=== PATIENT | female | born 1945 | race Caucasian/White ===

== ENCOUNTER 2018-01-18 14:13 | Inpatient (IN) | payer MEDICARE, OTHER ==
--- NOTE | 2018-01-18 16:28 | History and Physical Report ---
History of Present Illnes - History of Present Illness Reason for Visit: Weakness History of Present Illness: Patient has a long standing h/o of spinal issues and chronic pain. She underwent decompression and refusion of L2-S1 by Dr. Romero at [facility] [place] for severe spinal stenosis. This was her 6th L spine surgery. She has done well postop. Had quite a bit of pre-op weakness. She will be admitted for SNF to help with her ambulation and strength. 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: Dementia, Other (Parkinsons) Gastrointestinal: GERD Psych: Anxiety, Depression, Other (Insomnia) Musculoskeletal: Chronic low back pain, Osteoarthritis Rheumatologic: Fibromyalgia Renal/: Other (OAB/incontinence) Endocrine: Osteoporosis - Past Surgical History Past Surgical History: Cataract Removal, Hysterectomy (1983 due to cervical cancer), Other (L spine surgery x 6; C spine surgery x 3) - Past Family History Mother Family History: DM, (86), Other (Parkinsons) Father Family History: CAD, (80) - Past Social History Smoke: Quit (Smokes and "eats" marijuana occasionally) 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 2 kids) - Health Maintenance Health Maintenance: Cholesterol, Influenza Vaccine, Pneumococcal Vaccine Influenza Vaccine: Current for this Influenza Season Pneumonia Vaccine: Yes Resuscitation Status: Resusciation Status Resuscitation Status Full Code Review of Systems - Review of Systems Constitutional: Weakness. negative: Fever Eyes: negative: pain ENT: negative: Nose Congestion Respiratory: negative: Cough, Shortness of Breath Cardiovascular: negative: Chest Pain Gastrointestinal: Constipation. negative: Nausea, Vomiting, Abdominal Pain Genitourinary: negative: Dysuria Musculoskeletal: Back Pain Skin: negative: Rash Neurological: Weakness - Medications/Allergies Allergies/Adverse Reactions: Allergies Allergy/AdvReac Type Severity Reaction Status Date / Time Sulfa (Sulfonamide Allergy Mild Verified 10/23/16 10:35 Antibiotics) Current Inpatient Medications: Current Inpatient Medications Aripiprazole (Abilify) 5 mg PO DAILY MARIN Aspirin (Ecotrin) 81 mg PO DAILY MARIN Baclofen (Lioresal) 10 mg PO TID MARIN Bisacodyl (Dulcolax) 10 mg PO DAILY PRN PRN Reason: Constipation Carbidopa/Levodopa (Sinemet) each PO TID MARIN Diazepam (Valium) 5 mg PO Q12 PRN PRN Reason: Anxiety Enoxaparin Sodium (Lovenox) 40 mg SQ QD [facility] Stop: 02/01/18 16:59 Fluoxetine HCl (Prozac) 20 mg PO DAILY [facility] Gabapentin (Neurontin) 400 mg PO TID [facility] Lisinopril (Prinivil) 10 mg PO DAILY [facility] Memantine (Namenda) 10 mg PO HS [facility] Miscellaneous (Entacapone [Entacapone]) 200 mg PO TID [facility] Miscellaneous (Estradiol [Estradiol]) 1 mg PO DAILY [facility] Polyethylene Glycol (Miralax) 17 gm PO 1100 [facility] Sennosides (Senokot) 8.6 mg PO BID [facility] Exam - Exam General: Alert, Oriented to Person, Oriented to Place, Oriented to Time, Cooperative, Thin HEENT: Atraumatic, PERRLA, EOMI, Mouth Mucous membr. moist/Big Arm, Nose Mucous membr. moist/Big Arm Neck: Normal Range of Motion Lungs: Clear to auscultation, Normal air movement, Speaks full Sentences Cardiovascular: Regular rate Abdomen: Normal bowel sounds, Soft, No tenderness Integumentary: Normal, Other (Midline incision C/D/I) Extremities: No edema Neurological: Generalized Weakness Psych/Mental Status: Mental status NL, Mood NL, Appropriate Affect, Intact Judgment Assessment/Plan - Assessment/Plan (1) Weakness Status: Acute Current Visit: Yes Plan: Will admit patient for PT/OT. Gentle walking per Dr. Romero to allow healing. Corset when up and active. (2) Chronic pain Status: Acute Current Visit: Yes Plan: Patient is back on her pre-op norco 10. Work on bowels. Lovenox for DVT prevention. (3) S/P lumbar spinal fusion Status: Acute Current Visit: Yes (4) HTN (hypertension) Status: Chronic Current Visit: No Qualifiers: Hypertension type: essential hypertension Qualified Code(s): I10 - Essential (primary) hypertension (5) Parkinson disease Status: Chronic Current Visit: No (6) Fibromyalgia Status: Chronic Current Visit: No VTE Assessment - RISK FACTOR SCORE VTE RISK FACTOR SCORES: AGE OVER 60 YEARS, ANTICIPATED BED CONFINEMENT OR IMMOBILIZATION > 24 HOURS - RISK VTE MODERATE RISK: SCORE OF 2 (RISK PROXIMAL DVT 2-4%) PROPHYAXIS NEEDED
[2018-01-18] MEDS ORDERED: GABAPENTIN 100 MG CAPSULE ONE (16:53)
[2018-01-18] MEDS: HYDROcodone /APAP 10/325 1 EACH TABLET PO PRN ×2 (17:16→21:02)
[2018-01-18] MEDS: GABAPENTIN 300 MG CAPSULE PO SCH (17:17)
[2018-01-18] MEDS: BACLOFEN 10 MG TABLET PO SCH (17:17)
[2018-01-18] MEDS: MEMANTINE HCL 10 MG TABLET PO SCH ×2 (17:17→20:31)
[2018-01-18] MEDS: ENOXAPARIN SODIUM 40 MG/0.4 ML DISP.SYRIN SQ SCH (17:18)
[2018-01-18] MEDS: ENTACAPONE 200 MG PO SCH (17:18)
[2018-01-18] MEDS: POLYETHYLENE GLYCOL 3350 17 GM POWD.PACK PO SCH (17:18)
[2018-01-18 18:55] VITALS: BMI 21.4
[2018-01-18] MEDS: SENNOSIDES 8.6 MG TABLET PO SCH (20:30)
[2018-01-18] MEDS: DIAZEPAM 5 MG TABLET PO PRN (20:34)
[2018-01-19] MEDS ORDERED: GABAPENTIN 100 MG CAPSULE ONE ×2 (01:31→13:11)
[2018-01-19] MEDS: HYDROcodone /APAP 10/325 1 EACH TABLET PO PRN ×5 (01:33→17:27)
[2018-01-19] MEDS: SENNOSIDES 8.6 MG TABLET PO SCH ×2 (08:36→19:41)
[2018-01-19] MEDS: BACLOFEN 10 MG TABLET PO SCH ×3 (08:37→17:27)
[2018-01-19] MEDS: LISINOPRIL 20 MG TABLET PO SCH (08:37)
[2018-01-19] MEDS: ASPIRIN EC 81 MG TABLET.DR PO SCH (08:37)
[2018-01-19] MEDS: GABAPENTIN 300 MG CAPSULE PO SCH ×3 (08:38→17:28)
[2018-01-19] MEDS: ENTACAPONE 200 MG PO SCH ×3 (08:38→17:27)
[2018-01-19] MEDS: ARIPIPRAZOLE 2 MG TABLET PO SCH (08:45)
[2018-01-19] MEDS: FLUoxetine HCL 10 MG CAPSULE PO SCH (08:45)
[2018-01-19] MEDS ORDERED: ARIPIPRAZOLE 5 MG PO SCH (09:00)
[2018-01-19] MEDS ORDERED: ESTRADIOL 1 MG PO SCH (09:00)
[2018-01-19] MEDS ORDERED: FLUOXETINE HCL 20 MG PO SCH (09:00)
--- NOTE | 2018-01-19 11:06 | Inpatient Progress Note ---
Subjective - Required Recertification Statement I anticipate X number of days because-include discharge plan: 10 - Review of Systems Subjective: Patient tells me her [place]'s 10 aren't controlling the pain. This is what she took for pain at home. Objective - Exam Vitals and I&O: Vital Signs Temp 98.3 F 01/19/18 09:00 Pulse 85 01/19/18 09:00 Resp 18 01/19/18 09:00 BP 155/66 01/19/18 09:00 Pulse Ox 93 01/19/18 09:00 Intake & Output 01/18/18 01/18/18 01/19/18 11:59 23:59 11:59 Intake Total 240 600 Balance 240 600 Weight 41.73 kg Intake: Oral 240 600 Other: Voiding Method Toilet Toilet # Voids 1 3 General: Alert, Oriented to Person, Oriented to Place, Oriented to Time, Cooperative Assessment/Plan - Assessment/Plan (1) Weakness Status: Acute Current Visit: Yes (2) Chronic pain Status: Acute Current Visit: Yes Plan: I am going to add ibuprofen 600 mg bid to help with inflammation. (3) S/P lumbar spinal fusion Status: Acute Current Visit: Yes (4) HTN (hypertension) Status: Chronic Current Visit: No Qualifiers: Hypertension type: essential hypertension Qualified Code(s): I10 - Essential (primary) hypertension (5) Parkinson disease Status: Chronic Current Visit: No (6) Fibromyalgia Status: Chronic Current Visit: No
[2018-01-19] MEDS: POLYETHYLENE GLYCOL 3350 17 GM POWD.PACK PO SCH (11:32)
[2018-01-19] MEDS: ENOXAPARIN SODIUM 40 MG/0.4 ML DISP.SYRIN SQ SCH (17:29)
[2018-01-19] MEDS: DIAZEPAM 5 MG TABLET PO PRN (18:06)
[2018-01-19] MEDS: IBUPROFEN 200 MG TABLET PO SCH (19:41)
[2018-01-19] MEDS: MEMANTINE HCL 10 MG TABLET PO SCH (19:41)
[2018-01-20] MEDS: HYDROcodone /APAP 10/325 1 EACH TABLET PO PRN ×5 (01:39→22:30)
[2018-01-20] MEDS: ARIPIPRAZOLE 2 MG TABLET PO SCH (09:46)
[2018-01-20] MEDS: IBUPROFEN 200 MG TABLET PO SCH ×2 (09:47→20:26)
[2018-01-20] MEDS: ENTACAPONE 200 MG PO SCH ×3 (09:48→17:49)
[2018-01-20] MEDS: ASPIRIN EC 81 MG TABLET.DR PO SCH (09:48)
[2018-01-20] MEDS: ESTRADIOL 1 MG PO SCH (09:48)
[2018-01-20] MEDS: BACLOFEN 10 MG TABLET PO SCH ×3 (09:49→17:49)
[2018-01-20] MEDS: SENNOSIDES 8.6 MG TABLET PO SCH ×2 (09:50→20:26)
[2018-01-20] MEDS ORDERED: GABAPENTIN 100 MG CAPSULE ONE (09:55)
[2018-01-20] MEDS: MAGNESIUM HYDROXIDE 400 MG/5 ML 30ML UDC PO ONE (09:56)
[2018-01-20] MEDS: LISINOPRIL 20 MG TABLET PO SCH (09:57)
[2018-01-20] MEDS: GABAPENTIN 300 MG CAPSULE PO SCH ×3 (09:57→17:49)
[2018-01-20] MEDS: FLUoxetine HCL 10 MG CAPSULE PO SCH (09:58)
[2018-01-20] MEDS: POLYETHYLENE GLYCOL 3350 17 GM POWD.PACK PO SCH (11:54)
[2018-01-20] MEDS ORDERED: GABAPENTIN 300 MG CAPSULE PO SCH (13:00)
[2018-01-20] MEDS ORDERED: GABAPENTIN 100 MG CAPSULE PO SCH (13:00)
[2018-01-20] MEDS: GABAPENTIN 100 MG CAPSULE PO SCH ×2 (14:06→17:49)
[2018-01-20] MEDS: ENOXAPARIN SODIUM 40 MG/0.4 ML DISP.SYRIN SQ SCH (17:48)
[2018-01-20] MEDS: DIAZEPAM 5 MG TABLET PO PRN (20:25)
[2018-01-20] MEDS: MEMANTINE HCL 10 MG TABLET PO SCH (20:26)
[2018-01-21] MEDS: HYDROcodone /APAP 10/325 1 EACH TABLET PO PRN ×4 (04:26→20:41)
[2018-01-21] MEDS: FLUoxetine HCL 10 MG CAPSULE PO SCH (09:06)
[2018-01-21] MEDS: ARIPIPRAZOLE 2 MG TABLET PO SCH (09:06)
[2018-01-21] MEDS: LISINOPRIL 20 MG TABLET PO SCH (09:07)
[2018-01-21] MEDS: BACLOFEN 10 MG TABLET PO SCH ×3 (09:08→18:09)
[2018-01-21] MEDS: IBUPROFEN 200 MG TABLET PO SCH ×2 (09:09→20:33)
[2018-01-21] MEDS: ESTRADIOL 1 MG PO SCH (09:09)
[2018-01-21] MEDS: ASPIRIN EC 81 MG TABLET.DR PO SCH (09:09)
[2018-01-21] MEDS: GABAPENTIN 300 MG CAPSULE PO SCH ×3 (09:09→18:09)
[2018-01-21] MEDS: GABAPENTIN 100 MG CAPSULE PO SCH ×3 (09:09→18:09)
[2018-01-21] MEDS: SENNOSIDES 8.6 MG TABLET PO SCH ×2 (09:09→20:37)
[2018-01-21] MEDS: ENTACAPONE 200 MG PO SCH ×3 (09:09→18:10)
[2018-01-21] MEDS: POLYETHYLENE GLYCOL 3350 17 GM POWD.PACK PO SCH (11:20)
[2018-01-21] MEDS: ENOXAPARIN SODIUM 40 MG/0.4 ML DISP.SYRIN SQ SCH (16:25)
[2018-01-21] MEDS: MEMANTINE HCL 10 MG TABLET PO SCH (20:37)
[2018-01-22] MEDS: HYDROcodone /APAP 10/325 1 EACH TABLET PO PRN ×3 (04:59→19:53)
[2018-01-22] MEDS: IBUPROFEN 200 MG TABLET PO SCH ×2 (09:32→19:54)
[2018-01-22] MEDS: ENTACAPONE 200 MG PO SCH ×3 (09:33→17:32)
[2018-01-22] MEDS: ESTRADIOL 1 MG PO SCH (09:33)
[2018-01-22] MEDS: ASPIRIN EC 81 MG TABLET.DR PO SCH (09:33)
[2018-01-22] MEDS: BACLOFEN 10 MG TABLET PO SCH ×3 (09:34→17:31)
[2018-01-22] MEDS: GABAPENTIN 300 MG CAPSULE PO SCH ×3 (09:34→17:31)
[2018-01-22] MEDS: GABAPENTIN 100 MG CAPSULE PO SCH ×3 (09:34→17:31)
[2018-01-22] MEDS: LISINOPRIL 20 MG TABLET PO SCH (09:35)
[2018-01-22] MEDS: ARIPIPRAZOLE 2 MG TABLET PO SCH (09:40)
[2018-01-22] MEDS: FLUoxetine HCL 10 MG CAPSULE PO SCH (09:41)
[2018-01-22] MEDS: SENNOSIDES 8.6 MG TABLET PO SCH ×2 (09:41→19:56)
[2018-01-22] MEDS ORDERED: MAGNESIUM HYDROXIDE 400 MG/5 ML 30ML UDC PO ONE (10:18)
--- NOTE | 2018-01-22 10:21 | Inpatient Progress Note ---
Subjective - Required Recertification Statement I anticipate X number of days because-include discharge plan: 10 - Review of Systems Subjective: Patient doing ok. Small BM yesterday. Objective - Exam Vitals and I&O: Vital Signs Temp 96.2 F L 01/21/18 20:59 Pulse 72 01/21/18 21:00 Resp 18 01/21/18 21:00 BP 82/37 01/21/18 20:59 Pulse Ox 94 01/21/18 20:59 Intake & Output 01/21/18 01/21/18 01/22/18 11:59 23:59 11:59 Intake Total 220 1110 120 Balance 220 1110 120 Intake: Oral 220 1110 120 Other: Voiding Method Toilet Toilet # Voids 2 3 3 General: Alert, Oriented to Person, Oriented to Place, Oriented to Time, Cooperative, No acute distress Lungs: Clear to auscultation, Normal air movement, Speaks full Sentences Cardiovascular: Regular rate Assessment/Plan - Assessment/Plan (1) Weakness Status: Acute Current Visit: Yes (2) Chronic pain Status: Acute Current Visit: Yes (3) S/P lumbar spinal fusion Status: Acute Current Visit: Yes (4) HTN (hypertension) Status: Chronic Current Visit: No Qualifiers: Hypertension type: essential hypertension Qualified Code(s): I10 - Essential (primary) hypertension (5) Parkinson disease Status: Chronic Current Visit: No (6) Fibromyalgia Status: Chronic Current Visit: No (7) Constipation by delayed colonic transit Status: Acute Current Visit: Yes (8) Constipation Status: Acute Current Visit: Yes Qualifiers: Constipation type: unspecified constipation type Qualified Code(s): K59.00 - Constipation, unspecified Plan: Give MOM again today. Double miralax. Encourage ambulation.
[2018-01-22] MEDS: MAGNESIUM HYDROXIDE 400 MG/5 ML 30ML UDC PO ONE (10:51)
[2018-01-22] MEDS: POLYETHYLENE GLYCOL 3350 17 GM POWD.PACK PO SCH ×2 (10:58→19:55)
[2018-01-22] MEDS: ENOXAPARIN SODIUM 40 MG/0.4 ML DISP.SYRIN SQ SCH (17:31)
[2018-01-22] MEDS: MEMANTINE HCL 10 MG TABLET PO SCH (19:53)
[2018-01-22] MEDS: DIAZEPAM 5 MG TABLET PO PRN (19:53)
[2018-01-23] MEDS: HYDROcodone /APAP 10/325 1 EACH TABLET PO PRN ×4 (02:31→20:21)
[2018-01-23] MEDS: ENTACAPONE 200 MG PO SCH ×3 (08:09→17:29)
[2018-01-23] MEDS: BACLOFEN 10 MG TABLET PO SCH ×3 (08:10→17:29)
[2018-01-23] MEDS: LISINOPRIL 20 MG TABLET PO SCH (08:11)
[2018-01-23] MEDS: SENNOSIDES 8.6 MG TABLET PO SCH ×2 (08:11→20:19)
[2018-01-23] MEDS: ARIPIPRAZOLE 2 MG TABLET PO SCH (08:11)
[2018-01-23] MEDS: ASPIRIN EC 81 MG TABLET.DR PO SCH (08:11)
[2018-01-23] MEDS: IBUPROFEN 200 MG TABLET PO SCH ×2 (08:12→20:18)
[2018-01-23] MEDS: ESTRADIOL 1 MG PO SCH (08:13)
[2018-01-23] MEDS: GABAPENTIN 100 MG CAPSULE PO SCH ×3 (08:13→17:30)
[2018-01-23] MEDS: FLUoxetine HCL 10 MG CAPSULE PO SCH (08:20)
[2018-01-23] MEDS: GABAPENTIN 300 MG CAPSULE PO SCH ×3 (09:56→17:30)
[2018-01-23] MEDS: POLYETHYLENE GLYCOL 3350 17 GM POWD.PACK PO SCH ×2 (10:58→18:17)
[2018-01-23] MEDS: ENOXAPARIN SODIUM 40 MG/0.4 ML DISP.SYRIN SQ SCH (17:29)
[2018-01-23] MEDS: MEMANTINE HCL 10 MG TABLET PO SCH (20:18)
[2018-01-23] MEDS: DIAZEPAM 5 MG TABLET PO PRN (20:21)
[2018-01-24] MEDS: HYDROcodone /APAP 10/325 1 EACH TABLET PO PRN ×4 (02:09→18:29)
[2018-01-24] MEDS: IBUPROFEN 200 MG TABLET PO SCH ×2 (08:02→20:07)
[2018-01-24] MEDS: ASPIRIN EC 81 MG TABLET.DR PO SCH (08:03)
[2018-01-24] MEDS: ENTACAPONE 200 MG PO SCH ×3 (08:03→18:29)
[2018-01-24] MEDS: BACLOFEN 10 MG TABLET PO SCH ×3 (08:03→18:29)
[2018-01-24] MEDS: ESTRADIOL 1 MG PO SCH (08:03)
[2018-01-24] MEDS: GABAPENTIN 300 MG CAPSULE PO SCH ×3 (08:04→18:29)
[2018-01-24] MEDS: LISINOPRIL 20 MG TABLET PO SCH (08:04)
[2018-01-24] MEDS: GABAPENTIN 100 MG CAPSULE PO SCH ×3 (08:04→18:29)
[2018-01-24] MEDS: SENNOSIDES 8.6 MG TABLET PO SCH ×2 (08:05→20:07)
[2018-01-24] MEDS: ARIPIPRAZOLE 2 MG TABLET PO SCH (08:07)
[2018-01-24] MEDS: FLUoxetine HCL 10 MG CAPSULE PO SCH (08:07)
[2018-01-24] MEDS: POLYETHYLENE GLYCOL 3350 17 GM POWD.PACK PO SCH ×2 (10:40→20:08)
[2018-01-24] MEDS: ENOXAPARIN SODIUM 40 MG/0.4 ML DISP.SYRIN SQ SCH (18:29)
[2018-01-24] MEDS: MEMANTINE HCL 10 MG TABLET PO SCH (20:07)
[2018-01-25] MEDS: HYDROcodone /APAP 10/325 1 EACH TABLET PO PRN ×4 (01:07→17:56)
[2018-01-25] MEDS: IBUPROFEN 200 MG TABLET PO SCH ×2 (09:24→20:11)
[2018-01-25] MEDS: ASPIRIN EC 81 MG TABLET.DR PO SCH (09:25)
[2018-01-25] MEDS: ARIPIPRAZOLE 2 MG TABLET PO SCH (09:25)
[2018-01-25] MEDS: BACLOFEN 10 MG TABLET PO SCH ×3 (09:26→17:30)
[2018-01-25] MEDS: GABAPENTIN 300 MG CAPSULE PO SCH ×3 (09:26→17:30)
[2018-01-25] MEDS: GABAPENTIN 100 MG CAPSULE PO SCH ×3 (09:26→17:31)
[2018-01-25] MEDS: ENTACAPONE 200 MG PO SCH ×3 (09:26→17:30)
[2018-01-25] MEDS: ESTRADIOL 1 MG PO SCH (09:26)
[2018-01-25] MEDS: SENNOSIDES 8.6 MG TABLET PO SCH ×2 (09:27→20:12)
[2018-01-25] MEDS: FLUoxetine HCL 10 MG CAPSULE PO SCH (09:27)
[2018-01-25] MEDS: LISINOPRIL 20 MG TABLET PO SCH (09:27)
[2018-01-25] MEDS: POLYETHYLENE GLYCOL 3350 17 GM POWD.PACK PO SCH ×2 (12:20→18:43)
[2018-01-25] MEDS: ENOXAPARIN SODIUM 40 MG/0.4 ML DISP.SYRIN SQ SCH (17:30)
[2018-01-25] MEDS: DIAZEPAM 5 MG TABLET PO PRN (20:12)
[2018-01-25] MEDS: MEMANTINE HCL 10 MG TABLET PO SCH (20:12)
[2018-01-26] MEDS: HYDROcodone /APAP 10/325 1 EACH TABLET PO PRN ×5 (03:26→21:44)
[2018-01-26] MEDS: ARIPIPRAZOLE 2 MG TABLET PO SCH (08:00)
[2018-01-26] MEDS: IBUPROFEN 200 MG TABLET PO SCH ×2 (08:02→21:45)
[2018-01-26] MEDS: ESTRADIOL 1 MG PO SCH (08:03)
[2018-01-26] MEDS: GABAPENTIN 100 MG CAPSULE PO SCH ×3 (08:03→19:29)
[2018-01-26] MEDS: SENNOSIDES 8.6 MG TABLET PO SCH ×2 (08:03→21:45)
[2018-01-26] MEDS: FLUoxetine HCL 10 MG CAPSULE PO SCH (08:04)
[2018-01-26] MEDS: ENTACAPONE 200 MG PO SCH ×3 (08:04→19:27)
[2018-01-26] MEDS: LISINOPRIL 20 MG TABLET PO SCH (08:05)
[2018-01-26] MEDS: BACLOFEN 10 MG TABLET PO SCH ×3 (08:06→19:32)
[2018-01-26] MEDS: GABAPENTIN 300 MG CAPSULE PO SCH ×3 (08:06→19:28)
[2018-01-26] MEDS: ASPIRIN EC 81 MG TABLET.DR PO SCH (08:06)
[2018-01-26] MEDS: POLYETHYLENE GLYCOL 3350 17 GM POWD.PACK PO SCH ×2 (10:12→19:29)
[2018-01-26] MEDS: ENOXAPARIN SODIUM 40 MG/0.4 ML DISP.SYRIN SQ SCH (17:22)
[2018-01-26] MEDS: DIAZEPAM 5 MG TABLET PO PRN (21:44)
[2018-01-26] MEDS: MEMANTINE HCL 10 MG TABLET PO SCH (21:44)
[2018-01-27] MEDS: HYDROcodone /APAP 10/325 1 EACH TABLET PO PRN ×2 (07:09→17:59)
--- NOTE | 2018-01-27 09:10 | Inpatient Progress Note ---
Subjective - Required Recertification Statement I anticipate X number of days because-include discharge plan: 14 - Review of Systems Events since last encounter: nursing staff states that patient is not participating in PT and OT well because of pain. Is taking Mckenzie on a regular basis. Patient seems to have chronic pain issues. Objective - Exam Vitals and I&O: Vital Signs Temp 97.4 F L 01/26/18 20:26 Pulse 79 01/26/18 20:58 Resp 18 01/26/18 20:58 BP 153/77 01/26/18 20:26 Pulse Ox 95 01/26/18 20:26 Intake & Output 01/26/18 01/26/18 01/27/18 11:59 23:59 11:59 Intake Total 580 820 480 Balance 580 820 480 Intake: Oral 580 820 480 Other: Voiding Method Toilet Toilet # Voids 1 3 # Bowel Movements 1 1 Assessment/Plan - Assessment/Plan (1) S/P lumbar spinal fusion Status: Acute Current Visit: Yes Assessment: I will start MS contin 15mg BID over the weekend. Patient advised that Dr Charles may not want her to be on this for a long period of time. It si important for her to get up and move or her pain will get worse. Will discontinue Valium. (2) Fibromyalgia Status: Chronic Current Visit: No
[2018-01-27] MEDS: IBUPROFEN 200 MG TABLET PO SCH ×2 (09:13→19:59)
[2018-01-27] MEDS: ARIPIPRAZOLE 2 MG TABLET PO SCH (09:13)
[2018-01-27] MEDS: ASPIRIN EC 81 MG TABLET.DR PO SCH (09:14)
[2018-01-27] MEDS: ENTACAPONE 200 MG PO SCH ×3 (09:15→17:53)
[2018-01-27] MEDS: BACLOFEN 10 MG TABLET PO SCH ×3 (09:15→17:54)
[2018-01-27] MEDS: ESTRADIOL 1 MG PO SCH (09:15)
[2018-01-27] MEDS: GABAPENTIN 100 MG CAPSULE PO SCH ×3 (09:16→17:54)
[2018-01-27] MEDS: LISINOPRIL 20 MG TABLET PO SCH (09:16)
[2018-01-27] MEDS: GABAPENTIN 300 MG CAPSULE PO SCH ×3 (09:16→17:54)
[2018-01-27] MEDS: SENNOSIDES 8.6 MG TABLET PO SCH ×2 (09:17→20:00)
[2018-01-27] MEDS: FLUoxetine HCL 10 MG CAPSULE PO SCH (09:17)
[2018-01-27] MEDS: MORPHINE SULFATE 15 MG TABLET.ER PO SCH ×2 (09:21→20:00)
[2018-01-27] MEDS: POLYETHYLENE GLYCOL 3350 17 GM POWD.PACK PO SCH ×2 (11:31→17:56)
[2018-01-27] MEDS: ENOXAPARIN SODIUM 40 MG/0.4 ML DISP.SYRIN SQ SCH (17:53)
[2018-01-27] MEDS: MEMANTINE HCL 10 MG TABLET PO SCH (19:59)
[2018-01-28] MEDS: FLUoxetine HCL 10 MG CAPSULE PO SCH (08:47)
[2018-01-28] MEDS: ARIPIPRAZOLE 2 MG TABLET PO SCH (08:48)
[2018-01-28] MEDS: ESTRADIOL 1 MG PO SCH (08:48)
[2018-01-28] MEDS: IBUPROFEN 200 MG TABLET PO SCH ×2 (08:49→19:51)
[2018-01-28] MEDS: ASPIRIN EC 81 MG TABLET.DR PO SCH (08:50)
[2018-01-28] MEDS: BACLOFEN 10 MG TABLET PO SCH ×3 (08:50→17:37)
[2018-01-28] MEDS: ENTACAPONE 200 MG PO SCH ×3 (08:50→17:37)
[2018-01-28] MEDS: LISINOPRIL 20 MG TABLET PO SCH (08:51)
[2018-01-28] MEDS: GABAPENTIN 100 MG CAPSULE PO SCH ×3 (08:51→17:38)
[2018-01-28] MEDS: GABAPENTIN 300 MG CAPSULE PO SCH ×3 (08:51→17:38)
[2018-01-28] MEDS: SENNOSIDES 8.6 MG TABLET PO SCH ×2 (08:52→19:51)
[2018-01-28] MEDS: MORPHINE SULFATE 15 MG TABLET.ER PO SCH ×2 (08:54→19:52)
[2018-01-28] MEDS: HYDROcodone /APAP 10/325 1 EACH TABLET PO PRN (12:19)
[2018-01-28] MEDS: POLYETHYLENE GLYCOL 3350 17 GM POWD.PACK PO SCH ×2 (12:20→17:39)
[2018-01-28] MEDS: ENOXAPARIN SODIUM 40 MG/0.4 ML DISP.SYRIN SQ SCH (17:37)
[2018-01-28] MEDS: BISACODYL 5 MG TABLET.DR PO PRN (19:50)
[2018-01-28] MEDS: MEMANTINE HCL 10 MG TABLET PO SCH (19:51)
[2018-01-29] MEDS: IBUPROFEN 200 MG TABLET PO SCH ×2 (09:11→19:37)
[2018-01-29] MEDS: ARIPIPRAZOLE 2 MG TABLET PO SCH (09:11)
[2018-01-29] MEDS: ESTRADIOL 1 MG PO SCH (09:12)
[2018-01-29] MEDS: BACLOFEN 10 MG TABLET PO SCH ×3 (09:12→17:38)
[2018-01-29] MEDS: ENTACAPONE 200 MG PO SCH ×3 (09:12→17:38)
[2018-01-29] MEDS: ASPIRIN EC 81 MG TABLET.DR PO SCH (09:12)
[2018-01-29] MEDS: LISINOPRIL 20 MG TABLET PO SCH (09:13)
[2018-01-29] MEDS: GABAPENTIN 300 MG CAPSULE PO SCH ×3 (09:13→17:38)
[2018-01-29] MEDS: GABAPENTIN 100 MG CAPSULE PO SCH ×3 (09:13→17:38)
[2018-01-29] MEDS: FLUoxetine HCL 10 MG CAPSULE PO SCH (09:13)
[2018-01-29] MEDS: SENNOSIDES 8.6 MG TABLET PO SCH ×2 (09:14→19:36)
[2018-01-29] MEDS: MORPHINE SULFATE 15 MG TABLET.ER PO SCH ×2 (09:16→19:37)
[2018-01-29] MEDS: POLYETHYLENE GLYCOL 3350 17 GM POWD.PACK PO SCH ×2 (11:06→17:37)
[2018-01-29] MEDS: HYDROcodone /APAP 10/325 1 EACH TABLET PO PRN (17:35)
[2018-01-29] MEDS: ENOXAPARIN SODIUM 40 MG/0.4 ML DISP.SYRIN SQ SCH (17:39)
[2018-01-29] MEDS: MEMANTINE HCL 10 MG TABLET PO SCH (19:35)
[2018-01-30] MEDS: FLUoxetine HCL 10 MG CAPSULE PO SCH (08:52)
[2018-01-30] MEDS: ENTACAPONE 200 MG PO SCH ×3 (08:52→17:22)
[2018-01-30] MEDS: ASPIRIN EC 81 MG TABLET.DR PO SCH (08:53)
[2018-01-30] MEDS: ESTRADIOL 1 MG PO SCH (08:53)
[2018-01-30] MEDS: BACLOFEN 10 MG TABLET PO SCH ×3 (08:54→17:22)
[2018-01-30] MEDS: GABAPENTIN 100 MG CAPSULE PO SCH ×3 (08:54→17:22)
[2018-01-30] MEDS: GABAPENTIN 300 MG CAPSULE PO SCH ×3 (08:54→17:22)
[2018-01-30] MEDS: SENNOSIDES 8.6 MG TABLET PO SCH ×2 (08:55→19:57)
[2018-01-30] MEDS: LISINOPRIL 20 MG TABLET PO SCH (08:55)
[2018-01-30] MEDS: ARIPIPRAZOLE 2 MG TABLET PO SCH (08:58)
[2018-01-30] MEDS: MORPHINE SULFATE 15 MG TABLET.ER PO SCH ×2 (09:00→19:57)
[2018-01-30] MEDS: IBUPROFEN 200 MG TABLET PO SCH ×2 (09:00→19:56)
[2018-01-30] MEDS: POLYETHYLENE GLYCOL 3350 17 GM POWD.PACK PO SCH ×2 (11:15→17:23)
[2018-01-30] MEDS: HYDROcodone /APAP 10/325 1 EACH TABLET PO PRN (13:00)
[2018-01-30] MEDS: ENOXAPARIN SODIUM 40 MG/0.4 ML DISP.SYRIN SQ SCH (17:22)
[2018-01-30] MEDS: MEMANTINE HCL 10 MG TABLET PO SCH (19:57)
--- NOTE | 2018-01-31 07:34 | Inpatient Progress Note ---
Subjective - Required Recertification Statement I anticipate X number of days because-include discharge plan: 7 - Review of Systems Subjective: Patient doing better. Had very loose stool last night. Objective - Exam Vitals and I&O: Vital Signs Temp 98.1 F 01/30/18 21:00 Pulse 18 L 01/30/18 21:00 Resp 18 01/30/18 21:00 BP 154/76 01/30/18 21:00 Pulse Ox 93 01/30/18 21:00 Intake & Output 01/30/18 01/30/18 01/31/18 11:59 23:59 11:59 Intake Total 360 1520 Output Total 1 Balance 359 1520 Weight 42.638 kg 42.638 kg Intake: Oral 360 1520 Output: Stool 1 Other: Voiding Method Toilet Toilet # Voids 1 3 1 General: Alert, Oriented to Person, Oriented to Place, Oriented to Time, Cooperative, No acute distress Lungs: Clear to auscultation, Normal air movement, Speaks full Sentences Cardiovascular: Regular rate Assessment/Plan - Assessment/Plan (1) Weakness Status: Acute Current Visit: Yes (2) Chronic pain Status: Acute Current Visit: Yes Plan: Cut miralax to once daily. Watch. (3) S/P lumbar spinal fusion Status: Acute Current Visit: Yes Plan: Patient will need a jr. Wheeled walker and grabber for discharge to aid in ambulation and ADL's as she has bending restrictions and ataxic gait. Therapy feels she would benefit from bedside commode. Her toilet at home is on a step up. At this point her legs are too weak to get up the step. Also there is no place to put grab bars based on the toilet position. Therefore she really needs a bedside commode short term at least. (4) HTN (hypertension) Status: Chronic Current Visit: No Qualifiers: Hypertension type: essential hypertension Qualified Code(s): I10 - Essential (primary) hypertension (5) Parkinson disease Status: Chronic Current Visit: No (6) Fibromyalgia Status: Chronic Current Visit: No (7) Constipation by delayed colonic transit Status: Acute Current Visit: Yes (8) Constipation Status: Acute Current Visit: Yes Qualifiers: Constipation type: unspecified constipation type Qualified Code(s): K59.00 - Constipation, unspecified
[2018-01-31] MEDS: ASPIRIN EC 81 MG TABLET.DR PO SCH (08:25)
[2018-01-31] MEDS: LISINOPRIL 20 MG TABLET PO SCH (08:26)
[2018-01-31] MEDS: BACLOFEN 10 MG TABLET PO SCH ×3 (08:26→16:55)
[2018-01-31] MEDS: GABAPENTIN 100 MG CAPSULE PO SCH ×3 (08:26→16:55)
[2018-01-31] MEDS: GABAPENTIN 300 MG CAPSULE PO SCH ×3 (08:26→16:55)
[2018-01-31] MEDS: IBUPROFEN 200 MG TABLET PO SCH ×2 (08:27→20:11)
[2018-01-31] MEDS: ENTACAPONE 200 MG PO SCH ×3 (08:28→16:55)
[2018-01-31] MEDS: ESTRADIOL 1 MG PO SCH (08:28)
[2018-01-31] MEDS: SENNOSIDES 8.6 MG TABLET PO SCH ×2 (08:29→20:11)
[2018-01-31] MEDS: MORPHINE SULFATE 15 MG TABLET.ER PO SCH ×2 (08:34→20:12)
[2018-01-31] MEDS: FLUoxetine HCL 10 MG CAPSULE PO SCH (08:35)
[2018-01-31] MEDS: ARIPIPRAZOLE 2 MG TABLET PO SCH (08:35)
[2018-01-31] MEDS: POLYETHYLENE GLYCOL 3350 17 GM POWD.PACK PO SCH (08:44)
[2018-01-31] MEDS: ENOXAPARIN SODIUM 40 MG/0.4 ML DISP.SYRIN SQ SCH (16:54)
[2018-01-31] MEDS: HYDROcodone /APAP 10/325 1 EACH TABLET PO PRN (16:59)
[2018-01-31] MEDS: MEMANTINE HCL 10 MG TABLET PO SCH (20:17)
[2018-02-01] MEDS: MORPHINE SULFATE 15 MG TABLET.ER PO SCH ×2 (08:17→20:26)
[2018-02-01] MEDS: SENNOSIDES 8.6 MG TABLET PO SCH ×2 (08:18→20:25)
[2018-02-01] MEDS: FLUoxetine HCL 10 MG CAPSULE PO SCH (08:18)
[2018-02-01] MEDS: IBUPROFEN 200 MG TABLET PO SCH ×2 (08:18→20:26)
[2018-02-01] MEDS: LISINOPRIL 20 MG TABLET PO SCH (08:18)
[2018-02-01] MEDS: ASPIRIN EC 81 MG TABLET.DR PO SCH (08:18)
[2018-02-01] MEDS: BACLOFEN 10 MG TABLET PO SCH ×3 (08:18→17:26)
[2018-02-01] MEDS: ESTRADIOL 1 MG PO SCH (08:19)
[2018-02-01] MEDS: ENTACAPONE 200 MG PO SCH ×3 (08:19→17:24)
[2018-02-01] MEDS: GABAPENTIN 300 MG CAPSULE PO SCH ×3 (08:23→17:26)
[2018-02-01] MEDS: ARIPIPRAZOLE 2 MG TABLET PO SCH (08:23)
[2018-02-01] MEDS: GABAPENTIN 100 MG CAPSULE PO SCH ×3 (08:23→17:26)
[2018-02-01] MEDS: POLYETHYLENE GLYCOL 3350 17 GM POWD.PACK PO SCH (11:05)
[2018-02-01] MEDS: HYDROcodone /APAP 10/325 1 EACH TABLET PO PRN (17:23)
[2018-02-01] MEDS: MEMANTINE HCL 10 MG TABLET PO SCH (20:26)
[2018-02-02] MEDS: ESTRADIOL 1 MG PO SCH (09:08)
[2018-02-02] MEDS: ENTACAPONE 200 MG PO SCH ×3 (09:09→17:51)
[2018-02-02] MEDS: FLUoxetine HCL 10 MG CAPSULE PO SCH (09:09)
[2018-02-02] MEDS: ARIPIPRAZOLE 2 MG TABLET PO SCH (09:10)
[2018-02-02] MEDS: ASPIRIN EC 81 MG TABLET.DR PO SCH (09:13)
[2018-02-02] MEDS: IBUPROFEN 200 MG TABLET PO SCH ×2 (09:13→20:39)
[2018-02-02] MEDS: BACLOFEN 10 MG TABLET PO SCH ×3 (09:14→17:52)
[2018-02-02] MEDS: MORPHINE SULFATE 15 MG TABLET.ER PO SCH ×2 (09:15→20:39)
[2018-02-02] MEDS: GABAPENTIN 100 MG CAPSULE PO SCH ×3 (09:15→17:52)
[2018-02-02] MEDS: GABAPENTIN 300 MG CAPSULE PO SCH ×3 (09:15→17:52)
[2018-02-02] MEDS: LISINOPRIL 20 MG TABLET PO SCH (09:15)
[2018-02-02] MEDS: SENNOSIDES 8.6 MG TABLET PO SCH ×2 (09:16→20:39)
[2018-02-02] MEDS: POLYETHYLENE GLYCOL 3350 17 GM POWD.PACK PO SCH (11:20)
[2018-02-02] MEDS: MEMANTINE HCL 10 MG TABLET PO SCH (20:39)
[2018-02-03] MEDS: MORPHINE SULFATE 15 MG TABLET.ER PO SCH ×2 (09:19→20:12)
[2018-02-03] MEDS: ENTACAPONE 200 MG PO SCH ×3 (09:20→18:07)
[2018-02-03] MEDS: ESTRADIOL 1 MG PO SCH (09:20)
[2018-02-03] MEDS: ARIPIPRAZOLE 2 MG TABLET PO SCH (09:20)
[2018-02-03] MEDS: IBUPROFEN 200 MG TABLET PO SCH ×2 (09:21→20:11)
[2018-02-03] MEDS: FLUoxetine HCL 10 MG CAPSULE PO SCH (09:21)
[2018-02-03] MEDS: LISINOPRIL 20 MG TABLET PO SCH (09:22)
[2018-02-03] MEDS: SENNOSIDES 8.6 MG TABLET PO SCH ×2 (09:22→20:11)
[2018-02-03] MEDS: GABAPENTIN 100 MG CAPSULE PO SCH ×3 (09:23→18:07)
[2018-02-03] MEDS: BACLOFEN 10 MG TABLET PO SCH ×3 (09:23→18:07)
[2018-02-03] MEDS: ASPIRIN EC 81 MG TABLET.DR PO SCH (09:23)
[2018-02-03] MEDS: GABAPENTIN 300 MG CAPSULE PO SCH ×3 (09:23→18:07)
[2018-02-03] MEDS: POLYETHYLENE GLYCOL 3350 17 GM POWD.PACK PO SCH (11:02)
[2018-02-03] MEDS: MEMANTINE HCL 10 MG TABLET PO SCH (20:11)
[2018-02-04] MEDS: IBUPROFEN 200 MG TABLET PO SCH ×2 (08:39→19:57)
[2018-02-04] MEDS: ARIPIPRAZOLE 2 MG TABLET PO SCH (08:39)
[2018-02-04] MEDS: ASPIRIN EC 81 MG TABLET.DR PO SCH (08:40)
[2018-02-04] MEDS: ENTACAPONE 200 MG PO SCH ×3 (08:40→17:47)
[2018-02-04] MEDS: LISINOPRIL 20 MG TABLET PO SCH (08:41)
[2018-02-04] MEDS: GABAPENTIN 300 MG CAPSULE PO SCH ×3 (08:41→17:48)
[2018-02-04] MEDS: GABAPENTIN 100 MG CAPSULE PO SCH ×3 (08:41→17:48)
[2018-02-04] MEDS: ESTRADIOL 1 MG PO SCH (08:41)
[2018-02-04] MEDS: MORPHINE SULFATE 15 MG TABLET.ER PO SCH ×2 (08:41→19:58)
[2018-02-04] MEDS: FLUoxetine HCL 10 MG CAPSULE PO SCH (08:42)
[2018-02-04] MEDS: BACLOFEN 10 MG TABLET PO SCH ×3 (08:44→17:49)
[2018-02-04] MEDS: SENNOSIDES 8.6 MG TABLET PO SCH ×2 (09:18→19:57)
[2018-02-04] MEDS: POLYETHYLENE GLYCOL 3350 17 GM POWD.PACK PO SCH (11:38)
[2018-02-04] MEDS: HYDROcodone /APAP 10/325 1 EACH TABLET PO PRN (16:32)
[2018-02-04] MEDS: MEMANTINE HCL 10 MG TABLET PO SCH (19:57)
[2018-02-05] MEDS: ASPIRIN EC 81 MG TABLET.DR PO SCH (08:25)
[2018-02-05] MEDS: IBUPROFEN 200 MG TABLET PO SCH ×2 (08:25→20:04)
[2018-02-05] MEDS: ENTACAPONE 200 MG PO SCH ×3 (08:25→18:12)
[2018-02-05] MEDS: ESTRADIOL 1 MG PO SCH (08:25)
[2018-02-05] MEDS: GABAPENTIN 300 MG CAPSULE PO SCH ×3 (08:26→18:12)
[2018-02-05] MEDS: GABAPENTIN 100 MG CAPSULE PO SCH ×3 (08:26→18:11)
[2018-02-05] MEDS: LISINOPRIL 20 MG TABLET PO SCH (08:26)
[2018-02-05] MEDS: BACLOFEN 10 MG TABLET PO SCH ×3 (08:26→18:12)
[2018-02-05] MEDS: SENNOSIDES 8.6 MG TABLET PO SCH ×2 (08:27→20:04)
[2018-02-05] MEDS: FLUoxetine HCL 10 MG CAPSULE PO SCH (08:30)
[2018-02-05] MEDS: MORPHINE SULFATE 15 MG TABLET.ER PO SCH ×2 (08:30→20:06)
[2018-02-05] MEDS: ARIPIPRAZOLE 2 MG TABLET PO SCH (08:30)
[2018-02-05] MEDS: POLYETHYLENE GLYCOL 3350 17 GM POWD.PACK PO SCH (11:20)
[2018-02-05] MEDS: MEMANTINE HCL 10 MG TABLET PO SCH (20:03)
[2018-02-06] MEDS: HYDROcodone /APAP 10/325 1 EACH TABLET PO PRN ×2 (02:15→11:23)
[2018-02-06] MEDS: ESTRADIOL 1 MG PO SCH (09:17)
[2018-02-06] MEDS: BACLOFEN 10 MG TABLET PO SCH ×3 (09:17→17:41)
[2018-02-06] MEDS: ENTACAPONE 200 MG PO SCH ×3 (09:17→17:41)
[2018-02-06] MEDS: SENNOSIDES 8.6 MG TABLET PO SCH ×2 (09:18→20:19)
[2018-02-06] MEDS: IBUPROFEN 200 MG TABLET PO SCH ×2 (09:24→20:19)
[2018-02-06] MEDS: ARIPIPRAZOLE 2 MG TABLET PO SCH (09:24)
[2018-02-06] MEDS: GABAPENTIN 300 MG CAPSULE PO SCH ×3 (09:25→17:41)
[2018-02-06] MEDS: ASPIRIN EC 81 MG TABLET.DR PO SCH (09:25)
[2018-02-06] MEDS: GABAPENTIN 100 MG CAPSULE PO SCH ×3 (09:25→17:42)
[2018-02-06] MEDS: MORPHINE SULFATE 15 MG TABLET.ER PO SCH ×2 (09:25→20:20)
[2018-02-06] MEDS: LISINOPRIL 20 MG TABLET PO SCH (09:26)
[2018-02-06] MEDS: FLUoxetine HCL 10 MG CAPSULE PO SCH (09:26)
[2018-02-06] MEDS: POLYETHYLENE GLYCOL 3350 17 GM POWD.PACK PO SCH (11:21)
[2018-02-06] MEDS: BISACODYL 5 MG TABLET.DR PO PRN (20:19)
[2018-02-06] MEDS: MEMANTINE HCL 10 MG TABLET PO SCH (20:20)
--- NOTE | 2018-02-07 07:54 | Discharge Summary ---
Discharge Summary - Discharge Sumary History of Present Illness: Patient has a long standing h/o of spinal issues and chronic pain. She underwent decompression and refusion of L2-S1 by Dr. Romero at [facility] for severe spinal stenosis. This was her 6th L spine surgery. She has done well postop. Had quite a bit of pre-op weakness. She will be admitted for SNF to help with her ambulation and strength. Condition at Discharge: Stable Home Medications: Ambulatory Orders Medication Instructions Recorded Estradiol 1 mg PO DAILY 08/15/13 Fluoxetine HCl 20 mg PO DAILY 08/15/13 Gabapentin 400 mg PO TID 08/15/13 Lisinopril 10 mg PO DAILY 08/15/13 Aripiprazole 5 mg PO DAILY 10/23/16 Aspirin [Adult Low Dose Aspirin EC] 81 mg PO DAILY 10/23/16 Baclofen 10 mg PO TID 10/23/16 Carbidopa/Levodopa 25/100 [Sinemet] 2 tab PO TID 10/23/16 Entacapone 200 mg PO TID 10/23/16 Simvastatin 80 mg PO HS 10/23/16 Consultations this Visit: None Procedures this Visit: None Allergies/Adverse Reactions: Allergies Allergy/AdvReac Type Severity Reaction Status Date / Time Sulfa (Sulfonamide Allergy Mild Verified 10/23/16 10:35 Antibiotics) Patient Problems: Current Active Problems Problem Status Onset Chronic pain Acute Constipation Acute Constipation by delayed colonic transit Acute S/P lumbar spinal fusion Acute Weakness Acute Discharge Summary: Patient did well in SNF and progressed to meet her goals with PT and OT. Pain was difficult to control at first with therapy. MS contin was added and worked well. We will not be continuing this at home as I feel patient needs to wean off all possible pain meds. She will continue therapy through home health. F/ U Dr. Romero as scheduled. I advised her to talk to her PCP about lowering simvastatin dose. Hospital Course: Discharge Dx: Weakness. Spinal fusion. HLD. HTn. Disp - home with home health
[2018-02-07] MEDS: BACLOFEN 10 MG TABLET PO SCH ×2 (09:42→13:30)
[2018-02-07] MEDS: ESTRADIOL 1 MG PO SCH (09:42)
[2018-02-07] MEDS: ASPIRIN EC 81 MG TABLET.DR PO SCH (09:42)
[2018-02-07] MEDS: ENTACAPONE 200 MG PO SCH ×2 (09:42→13:30)
[2018-02-07] MEDS: IBUPROFEN 200 MG TABLET PO SCH (09:42)
[2018-02-07] MEDS: GABAPENTIN 100 MG CAPSULE PO SCH ×2 (09:43→13:31)
[2018-02-07] MEDS: LISINOPRIL 20 MG TABLET PO SCH (09:43)
[2018-02-07] MEDS: SENNOSIDES 8.6 MG TABLET PO SCH (09:43)
[2018-02-07] MEDS: GABAPENTIN 300 MG CAPSULE PO SCH ×2 (09:43→13:31)
[2018-02-07] MEDS: FLUoxetine HCL 10 MG CAPSULE PO SCH (09:43)
[2018-02-07] MEDS: MORPHINE SULFATE 15 MG TABLET.ER PO SCH (09:47)
[2018-02-07] MEDS: ARIPIPRAZOLE 2 MG TABLET PO SCH (09:48)
[2018-02-07 10:36] VITALS: BP 144/76
[2018-02-07] MEDS: POLYETHYLENE GLYCOL 3350 17 GM POWD.PACK PO SCH (11:50)
== END 2018-02-07 13:15 | disposition home health service (06) | DRG 948 ==
LOC: SOUTH 14:13
PROVIDERS: ADMIT Family Medicine; ATTEND Family Medicine
DX: R53.1 Weakness (principal); G89.29 Other chronic pain; Z47.89 Encounter for other orthopedic aftercare; Z98.890 Other specified postprocedural states; G20 Parkinson's disease; M79.7 Fibromyalgia; I10 Essential (primary) hypertension; E78.5 Hyperlipidemia, unspecified
CPT/HCPCS: 97110; 97112; 97116; 97161; 97165; 97530; 97535; A9270; J1650